=== PATIENT | male | born 1930 | race Caucasian/White ===

== ENCOUNTER → 2017-03-24 | Outpatient (CLI) | payer MEDICARE, OTHER ==
[~2017-03-24] MED LIST: CARDIZEM CD)(T180 MG PO; COUMADIN 4MG **4 MG PO; FISH OIL 1,0001 EAC1 PO; LEVOTHROID (S112 MCG PO; LOPRESSOR50 MG PO; THERA-VITE W/ B1 TAB PO
--- NOTE | ~2017-03-24 | ESTC ---
Cardiac Perfusion Imaging Demographics Patient Name JOHANN Beavers Gender Male Patient Number [id number] Race Visit Number [id number] [place] [id number] Room Number Accession Number [id number] Height Date of 1930 Weight Age 86 year(s) BSA Referring Physician Lanie Liriano Interpreting Lanie Date of study 03/24/2017 Physician Deandra Supervising /KESHA CARVAJAL Technologist Jenny Liriano Ordering Physician Stress satellite technician Stress ECG Reading Lanie Nurse Mckenna Bacon RN Physician Deandra Medications Reviewed with Patient prior to Procedure. Procedure Procedure Type: Nuclear Stress Test:Cardiolite Stress Test Procedure Start time: 03/24/2017 08:45 Indications: Pre surgical clearance. Risk Factors The patient risk factors include:chronic lung disease. Conclusions Summary Perfusion Images: The overall quality of the study is good. Left ventricular cavity is noted to be normal on the stress and rest studies. There is no evidence of abnormal lung activity. Stress SPECT images and Rest SPECT images demonstrate homogenous tracer distribution throughout the myocardium. Gated SPECT imaging reveals normal myocardial thickening and wall motion. The left ventricular ejection fraction was calculated to be 62%. Impression ECG portion of stress test is clinically negative for ischemia by diagnostic criteria. Myocardial perfusion imaging is normal. Overall left ventricular systolic function was normal without regional wall motion abnormalities. There are no previous studies for comparison. Stress Protocols Resting ECG A Fib, non specific T wave abnormality, occ paced ventricular beats Pre-stress physical exam: Patient assessed by Dr Greenwood prior to testing. Peak HR:81 bpm HR/BP product:98116 Peak BP:141/61 mmHg Predicted HR: 132 bpm % of predicted HR: 61 ECG Findings No ECG changes suggestive of ischemia. Arrhythmias No significant rhythm change Symptoms Stomach upset, SOB Stress Interpretation Appropriate hemodynamic response to Lexiscan. No significant ST-T wave changes with Lexiscan. ECG portion is negative for ischemia by diagnostic criteria. Imaging Results Summed scores - Summed stress score: 3 - Summed rest score: 4 - Summed difference score: -1 Stress ejection Ejection fraction:62 % EDV :133 ml ESV :50 ml Stroke volume :83 ml LV mass :170 gr Imaging Protocols Rest Stress Isotope:Tc99m Sestamibi IV Isotope: Tc99m Sestamibi IV Isotope dose:13.6 mCi Isotope dose:42.4 mCi Date:03/24/2017 07:25 Date:03/24/2017 08:57 Technique: SPECT Technique: Gated Supine SPECT Supine Scan Time:45-60 minutes post Scan Time:45-60 minutes post injection injection Procedure Medications - Regadenoson (Lexiscan) 0.4 mg IV over 10-15 sec. I.V. 0.4 mg. Medications administered per verbal order and read back to physician prior to administration. Medical History Admission Data Admission date: 03/24/2017 Admission Time: 07:07 Hospital Status: Outpatient. Signatures dtt: DEANDRA GREENWOOD dtd: 03/24/17 0845 Physician Self Edit
== END | disposition disaster alternative care site (69) ==
LOC: GRAD 07:00
DX: Z01.810 Encounter for preprocedural cardiovascular examination (principal); J98.4 Other disorders of lung
CPT/HCPCS: A9500; J2785

== ENCOUNTER 2017-03-26 10:07 | Outpatient (CLI) | payer MEDICARE, OTHER ==
[~2017-03-26] VITALS: Ht 185.4 cm; Wt 90.6 kg
--- NOTE | ~2017-03-26 | CATH ---
Cardiac Diagnostic Report Demographics Patient Name JOHANN Beavers Gender Male Date of 1930 Age 86 year(s) Patient Number [id number] Date of Study 03/26/2017 Visit Number [id number] Room Number G[address] [place] [id number] Ht 185.42 cm Wt 90.6 kg Referring L'Heureux Nadja Primary Physician Physician S Performing Yerra Secondary Physician Physician Deandra Diagnostic Eliaa Assisting Physician Physician Deandra Interventional Physician Oracle Software Engineer Physician Findings and Conclusions Diagnostic Findings and Conclusion Right dominant L Main: No significant stenosis LAD: mid/distal 20-30% stenosis with bridging L Cx: No significant stenosis RCA: mild luminal irregularities Diagnostic Recommendations Refer for TAVR/AVR. Procedure Description The patient was brought to the diagnostic cardiac catheterization-EP laboratory in the fasting, non-sedated state. Informed consent was obtained in the written and verbal form after the risks and benefits were explained. The patient had no further questions and agreed to proceed. The planned puncture-incision site(s) were shaved and prepped with ChloraPrep and draped in the usual sterile manner. Conscious sedation, supplemental oxygen, and pain control medications were delivered by a registered nurse under physician guidance. Surface ECG rhythm, blood pressure measurement, and pulse oximetry were monitored throughout the procedure. Arterial access. The right radial artery access site was infiltrated with lidocaine. The vessel was entered with the Seldinger technique. A sheath was advanced into the vessel and used for catheter placement. Selective left coronary angiography. A catheter was advanced into the left coronary vessel ostium under Fluoroscopic guidance. Contrast was injected by hand. Images were obtained in multiple projections. Selective right coronary angiography. A catheter was advanced into the right coronary vessel ostium under fluoroscopic guidance. Contrast was injected by hand. Images were obtained in multiple projections. A pigtail catheter was then placed in abdominal aorta to obtain contrast CT angiogram of iliac and femoral arteries. Arterial sheath was then removed and hemostasis was achieved using TR band. The patient was transferred to a regular nursing floor via cart accompanied by a nurse. The patient left the laboratory in stable condition. Diagnostic Cath Status: Elective Procedure Procedure Type Diagnostic procedure:Angiography:, Coronary Angios Indications: Aortic stenosis. The procedure was explained in detail to the patient. Risks, complications and alternative treatments were reviewed. Written consent was obtained. Medications Reviewed with Patient prior to Procedure. Angiographic Findings Dominance: Right Cardiac Arteries and Lesion Findings LMCA: Normal (0% Stenosis). LAD: Lesion on Mid LAD: 30% stenosis . LCx: Normal (0% Stenosis). RCA: Minor Luminal Irregularities. Coronary Tree Procedure Data Procedure Date Date: 03/26/2017Start: 12:39 PMEnd: 01:24 PM Entry Locations - Retrograde Percutaneous access was performed through the Right Radial artery (Primary location). A 6 Fr sheath was inserted. Hemostasis was successfully obtained using Mechanical Compression. Closure Comments: R band deployed in [place] by ELIZABETH Yoo after CT.. Procedure Medications Order and Administration + + + +-------+ !Time !Medication !Dosage !Route ! + + + +-------+ 03/26/2017 12:32 PM !Fentanyl !50 mcg !I.V. ! + + + +-------+ 03/26/2017 12:49 PM !Radial Verapamil !1.25 mg !I.A. ! + + + +-------+ 03/26/2017 12:49 PM !Radial Nitroglycerin !100 mcg !I.A. ! + + + +-------+ !03/26/2017 12:50 PM !Heparin (ACC_3) !3000 units !I.V. ! + + + +-------+ !03/26/2017 01:23 PM !Fentanyl !50 mcg !I.V. ! + + + +-------+ Devices Used - A5 Fr. BS JR 4 Diag. Catheterwas used for:Right coronary angiography. - A5 Fr. BS JL 3.5 Diag. Catheterwas used for:Left coronary angiography.Unable to cannulate the vessel. - A5 Fr. BS JL 4 Diag. Catheterwas used for:Left coronary angiography. Contrast Material - Isovue 03595 ml Fluoroscopy Time: Diagnostic: 16:36 minutes. Total: 16:36 minutes. Fluoroscopy Dose: Diagnostic: 1011 mGy. Total: 1011 mGy. Estimated Blood Loss: 15 ml. Medical History Performed Procedures and Imaging Results - Stress testing with SPECT MPIwas performed. Results were: Negative. Allergies - Other:(Aspartame). Risk Factors The patient risk factors include:cerebrovascular disease, hypertension, family history of premature CAD, last creatinine: 1.1 mg/dl, creatinine clearance: 59.48 ml/min and dyslipidemia. Admission Data Admission Date: 03/26/2017 Admission Time: 10:07 AM Admit Source: Other Insurance Payors: Medicare. Admission Medications + +------+------+ + + + + !Medication !Dosage!Times !Last !Last !Administered !Comments ! ! ! !Per !Delivery !Delivery ! ! ! ! ! !Day !Date !Time ! ! ! + +------+------+ + + + + !Non-Statin ! ! ! ! !Yes ! ! !(any) ! ! ! ! ! ! ! + +------+------+ + + + + !Beta ! ! ! ! !Yes ! ! !David ! ! ! ! ! ! ! !(any) ! ! ! ! ! ! ! + +------+------+ + + + + Clinical Evaluation Leading to Procedure - There were no CAD presentation symptoms. - There were no anginal symptoms. Anti-anginal medications were prescribed during the past two weeks. The medications are: Beta Blockers and Ca channel Blockers. Hemodynamics Condition: Rest O2 Consumption: Estimated: 237.70Heart Rate: 63 bpm Pressures (mmHg) +-----+ + !Site !Pressure ! +-----+ + !AO !149/71 (103) ! +-----+ + Shunts Oxygen Values O2 Capacity 178.16 O2 Consumption 237.7 Signatures dtt: DEANDRA GREENWOOD dtd: 03/26/17 1239 Physician Self Edit
--- NOTE | ~2017-03-26 | ECHO ---
Transesophageal Echocardiography Report ([facility]) Demographics Patient Name DUKE WILLS Date of Study 03/26/2017 Patient Number [id number] Visit Number [id number] Date of 1930 Room Number G6399 Gender Male Number Age 86 year(s) Referring L'Cyndie Brownsa S Security Solutions Engineer Meryl Burns RVT Physician Lanie Liriano Physician Interpreting Lanie Liriano Fluid Pump Operator Physician Supervising Ordering Physician Lanie Liriano MD/MLP Nurse Stress Independent Freight Agent Conclusions Summary The estimated left ventricular ejection fraction is 60-65%. Moderate concentric hypertrophy. There is severe aortic stenosis by the Continuity Equation. The peak velocity is 4.25 m/s, the mean gradient is 42 mmHg. On planimetry, aortic valve area is 0.51 cm2 There is no obvious LA or LA appendage thrombus; however, spontaneous contrast was seen in left atrial appendage and flow velocity is reduced. The left atrium is moderately dilated. Bubble study was done, few bubbles were seen in left atrium suggesting PFO. The right atrium is moderate to severely dilated. Mild to moderate calcification of the mitral valve. Mild-moderate mitral regurgitation by color Doppler. There is mild aortic regurgitation by color Doppler. Moderate tricuspid regurgitation by color Doppler. Pacer wires seen in RA and RV Procedure Type of Study [facility] procedure Procedure Date Date: 03/26/2017 Start: 11:18 AM Study Location: Inpatient Portable Technical Quality: Adequate visualization Indications:Aortic stenosis. Appropriate Use Criteria: 9 Patient Status: Routine HR: 89 bpm BP: 138/69 mmHg Allergies - Other:(Aspartame). Doppler Measurements AV Peak Velocity: 4.25 m/s AV Peak Gradient: 72.25 mmHg AV Mean Gradient: 42 mmHg Findings Left Ventricle Moderate concentric hypertrophy. Right Ventricle Moderately dilated right ventricle. Left Atrium There is no obvious LA or LA appendage thrombus; however, spontaneous contrast was seen in left atrial appendage and flow velocity is reduced. The left atrium is moderately dilated. Bubble study was done, few bubbles were seen in left atrium suggesting PFO. Right Atrium The right atrium is moderate to severely dilated. Mitral Valve Mild to moderate calcification of the mitral valve. Mild-moderate mitral regurgitation by color Doppler. Aortic Valve There is severe aortic stenosis by the Continuity Equation. The peak velocity is 4.25 m/s, the mean gradient is 42 mmHg. On planimetry, aortic valve area is 0.51 cm2 There is mild aortic regurgitation by color Doppler. LVOT 1.95 cm Aortic Root 2.52 cm Ascending Aorta 3.01 cm Tricuspid Valve Normal appearing tricuspid valve. Moderate tricuspid regurgitation by color Doppler. Miscellaneous Pacer wires seen in RA and RV Contractility Score LV regional wall motion:(0-Non visualized 1-Normal 2-Hypokinesis 3-Akinesis 4-Dyskinesis 5-Aneurysm) Signature dtt: DOUG GREENWOOD dtd: 03/26/17 1118 Physician Self Edit
[2017-03-26] MEDS ORDERED: CARDIZEM CD)(T180 MG PO (10:47)
[2017-03-26] MEDS ORDERED: COUMADIN 4MG **4 MG PO (10:49)
[2017-03-26] MEDS ORDERED: FISH OIL 1,0001 EAC1 PO (10:49)
[2017-03-26] MEDS ORDERED: LOPRESSOR50 MG PO (10:50)
[2017-03-26] MEDS ORDERED: LEVOTHROID (S112 MCG PO (10:50)
[2017-03-26] MEDS ORDERED: THERA-VITE W/ B1 TAB PO (10:51)
[2017-03-26 11:08] LABS: BASOPHIL # 0.1 K/uL (0.0-0.2); BASOPHIL % 0.9 %; EOSINOPHIL # 0.3 K/uL (0.0-0.5); EOSINOPHIL % 4.9 %; HEMATOCRIT 38.8 % (33.0-50.0); HEMOGLOBIN 13.1 g/dL (11.0-16.0); IMMATURE GRANULOCYTE % 0.2 %; LYMPHOCYTE # 1.6 K/uL (0.8-4.0); LYMPHOCYTE % 29.3 %; MCH 31.1 pg (27.0-34.0); MCHC 33.8 gm/dL (32.0-36.5); MCV 92.2 fl (83.0-98.0); MONOCYTE # 0.6 K/uL (0.0-1.0); MONOCYTE % 11.2 %; MPV 10.3 fl (9.4-12.4); NEUTROPHIL # (ANC) 2.8 K/uL (1.4-9.0); NEUTROPHIL % 53.5 %; NRBC % 0 /100WBC (0-0.00); PLATELET COUNT 128 K/uL (150-450); RBC 4.21 M/uL (3.50-5.50); RDW-CV 14.6 % (11.9-14.6); WBC 5.3 K/uL (4.0-11.0)
[2017-03-26 11:20] LABS: INR - (THERAPEUTIC) 2.06 (0.92-1.07); PROTIME 21.8 SECONDS (9.8-11.4); PTT 45 SECONDS (25-32)
[2017-03-26 11:27] LABS: ALBUMIN 3.6 gm/dL (3.5-5.0); CALCIUM 8.6 mg/dL (8.5-10.5); CREATININE 1.1 mg/dL (0.6-1.3); TOTAL BILIRUBIN 1.1 mg/dL (0.0-1.5); TOTAL PROTEIN 6.8 g/dL (6.0-8.4)
== END 2017-03-26 18:43 | disposition disaster alternative care site (69) ==
LOC: GOPP 10:07 → GPCU 10:07 → GRTH 11:00 → GOPP 18:43
PROVIDERS: Internal Medicine Interventional Cardiology
DX: Z01.810 Encounter for preprocedural cardiovascular examination (principal); I35.0 Nonrheumatic aortic (valve) stenosis; I70.0 Atherosclerosis of aorta; I07.1 Rheumatic tricuspid insufficiency; I70.208 Unspecified atherosclerosis of native arteries of extremities, other extremity; N40.0 Benign prostatic hyperplasia without lower urinary tract symptoms; K57.30 Diverticulosis of large intestine without perforation or abscess without bleeding; M47.896 Other spondylosis, lumbar region; I48.91 Unspecified atrial fibrillation; R94.31 Abnormal electrocardiogram [ECG] [EKG]
CPT/HCPCS: J1644; J2001; J3010; J7030

== ENCOUNTER → 2017-03-28 | Outpatient (CLI) | payer MEDICARE, OTHER ==
--- NOTE | ~2017-03-28 | PUL ---
PAT[facility]: [facility] AGE: 86 Y [address] ROOM: [place] [address] LOCATION: [facility] ADMIT DATE: 03/28/2017 Pulmonary DISCHARGE DATE: FAMILY PHYSICIAN: EZEKIEL THURMAN APRN ATTENDING PHYSICIAN: DOUG GREENWOOD NAME OF PROCEDURE: Pulmonary Function Test DATE OF PROCEDURE: March 28, 2017 TECH: JOSE Alonzo REASON FOR EXAM: Shortness of breath PROCEDURES PERFORMED: Spirometry with bronchodilator assessment. Measurement of mandatory voluntary ventilation. Measurement of lung volumes. Measurement of diffusion capacity. RESULTS: Spirometry showed pre bronchodilator FVC was 4.1 liters, 99% of predicted; post bronchodilator FVC was 4.13 liters, 99% of predicted. Pre bronchodilator FEV1 is 2.66 liters, 92% of predicted; post-bronchodilator FEV1 was 3.07 liters, 106% of predicted. FEV1/FVC was 65%, 93% of predicted. FEF 25-75% was 1.31 liters/second, 71% of predicted. Maximum voluntary ventilation was 90 liters/minute, 78% of predicted. This data did improve significantly following inhaled bronchodilator. Lung volumes show total lung capacity was 7.99 liters, 115% of predicted. Functional residual capacity was 5.18 liters, 128% of predicted. Residual volume was 3.89 liters, 127% of predicted. Diffusing capacity not adjusted for hemoglobin is 106% of predicted. The single breath alveolar ventilation was 5.09 liters which is a poor estimate of total lung capacity. Flow volume loop pattern is not interpretable. IMPRESSION: The above data and the corresponding flow volume curves are most compatible with mild airflow limitation which does respond to an inhaled bronchodilator, with evidence of mild gas trapping, without any gas transfer impairment. MD PAVITHRA HUMPHREY/kristin PATIENT'S NAME: [facility] AGE: 86 Y [address] ROOM: [place] [address] LOCATION: [facility] ADMIT DATE: 03/28/2017 Pulmonary DISCHARGE DATE: FAMILY PHYSICIAN: EZEKIEL THURMAN APRN ATTENDING PHYSICIAN: DOUG GREENWOOD /[id number] dtt: 04/03/17 1744 , KELSIE MEHTA dtd: 04/03/17 1023
== END | disposition disaster alternative care site (69) ==
LOC: GRTH 03-26 09:00
DX: Z01.810 Encounter for preprocedural cardiovascular examination (principal); I35.0 Nonrheumatic aortic (valve) stenosis

== ENCOUNTER → 2017-04-02 | Outpatient (CLI) | payer MEDICARE, OTHER ==
[2017-04-02 10:46] LABS: CALCIUM 8.7 mg/dL (8.5-10.5); CREATININE 1.2 mg/dL (0.6-1.3)
== END ==
LOC: LNHI 10:34
PROVIDERS: Internal Medicine Interventional Cardiology
DX: I35.0 Nonrheumatic aortic (valve) stenosis (principal); I48.91 Unspecified atrial fibrillation